=== PATIENT | female | born 1995 | race Caucasian/White ===

== ENCOUNTER → 2020-05-13 16:24 | Outpatient (BNVA) | payer SELFPAY | PROVIDERS: Visit Provider Obstetrics & Gynecology | DX: Z32.01 Encounter for pregnancy test, result positive (principal) | CPT/HCPCS: 81025 ==

== ENCOUNTER → 2020-05-19 13:57 | Outpatient (BNVA) | payer SELFPAY | PROVIDERS: Visit Provider Nurse Practitioner Women's Health | DX: O99.340 Other mental disorders complicating pregnancy, unspecified trimester (principal); F32.9 Major depressive disorder, single episode, unspecified | CPT/HCPCS: 80053; 80307; 81000; 85027; 86592; 86762; 86803; 86850; 86900; 87340; 87806 ==

== ENCOUNTER → 2020-06-01 11:37 | Outpatient (BNVA) | payer MEDICAID, SELFPAY | PROVIDERS: Visit Provider Obstetrics & Gynecology | DX: O09.30 Supervision of pregnancy with insufficient antenatal care, unspecified trimester; O26.899 Other specified pregnancy related conditions, unspecified trimester; Z67.91 Unspecified blood type, Rh negative; O99.89 Other specified diseases and conditions complicating pregnancy, childbirth and the puerperium; Z28.3 Underimmunization status; Z12.4 Encounter for screening for malignant neoplasm of cervix | CPT/HCPCS: 81000; 87491; 87591; 88175 ==

== ENCOUNTER → 2020-06-15 09:40 | Outpatient (BNVA) | payer SELFPAY | PROVIDERS: Visit Provider Obstetrics & Gynecology | DX: Z34.90 Encounter for supervision of normal pregnancy, unspecified, unspecified trimester (principal) | CPT/HCPCS: 81000 ==

== ENCOUNTER → 2020-07-13 13:10 | Outpatient (BNVA) | payer MEDICAID, SELFPAY | PROVIDERS: Visit Provider Obstetrics & Gynecology | DX: Z34.02 Encounter for supervision of normal first pregnancy, second trimester (principal) | CPT/HCPCS: 81000; 82950; 85025; 86850 ==

== ENCOUNTER → 2020-07-27 12:07 | Outpatient (BNVA) | payer SELFPAY | PROVIDERS: Visit Provider Obstetrics & Gynecology | DX: Z34.90 Encounter for supervision of normal pregnancy, unspecified, unspecified trimester (principal) | CPT/HCPCS: 81000 ==

== ENCOUNTER 2020-07-29 18:30 | Outpatient (CLI) | payer MEDICAID, SELFPAY ==
[2020-07-29] VITALS (39 sets, daily range): BP systolic 0–122; BP diastolic 0–87; PULSE 74–102; RESP 16–17; TEMP 36.3–37.2; O2SAT 99–100; BMI 24.3
[2020-07-29] MEDS: lactated ringers 1,000 ML 999 ML IV (19:00)
--- NOTE | 2020-07-29 19:08 | US_ITS ---
WS: [id number] ULTRASOUND OB LIMITED TECHNIQUE: Limited ultrasound examination of the fetus. CLINICAL INFORMATION: Decreased movement COMPARISON: None. FINDINGS: Cervix is closed measuring 3.2 cm Single interuterine gestation. heart rate 153 BPM. Single vertical pocket 3.2 cm Normal umbilical artery waveform and systolic/diastolic ratio. Biophysical profile 8 out of 8. breathin movement: 2 tone: 2 Amniotic fluid: 2 IMPRESSION 1. BPP 6 out of 8. Breathing not visualized. 2. Cervix is closed measuring 3.2 cm.
--- NOTE | 2020-07-29 19:14 | PC.NURSE ---
Dr. Hyde at bedside
--- NOTE | 2020-07-29 19:28 | PC.NURSE ---
Dr. Swartz on unit at this time
[2020-07-29] MEDS: magnesium sulfate premix 4 GM/100 ML PREMIX IV (19:30)
[2020-07-29 19:32] LABS: Basophils % 0.2 %; Eosinophils % 0.5 %; Hemoglobin 12.8 g/dL (11.5-15.3); Lymphocytes # 1.9 10^3/uL (0.8-4.8); Mean Corpuscular HGB Conc 33.7 g/dL (30.0-36.0); Mean Corpuscular Hemoglobin 31.8 pg (28.0-34.0); Mean Corpuscular Volume 94.5 fL (81-99); Mean Platelet Volume 12.3 fL (7.4-10.4); Monocytes # 0.7 10^3/uL (0.2-0.9); Monocytes % 12.3 %; Neutrophils # 3.25 10^3/uL (1.8-7.7); Neutrophils % 54.8 %; Nucleated Red Blood Cells % 0 %; Platelet Count 85 10^3/cmm (130-400); Red Blood Count 4.02 10^6/uL (4.1-5.3); Red Cell Distribution Width 12.7 % (12.1-15.1); White Blood Count 5.9 10^3/uL (4.0-10.0)
[2020-07-29] MEDS: betamethasone susp 6 mg/mL 5 mL 12 MG IM (19:40)
[2020-07-29] MEDS: magnesium sulfate premix 20 GM/500 ML BAG IV (19:50)
[2020-07-29 19:55] LABS: Slide Review Slide Review Perform
[2020-07-29] MEDS: lactated ringers 1,000 ML 75 ML (20:11)
[2020-07-29] MEDS: dextrose 5%-lactated ringers 1,000 ML 75 ML IV (20:29)
--- NOTE | 2020-07-29 20:50 | PC.NURSE ---
Dr. Hyde at bedside explaining that patient needs to be transported via helicopter to [facility] for a higher level of care. MD thoroughly explains the reasons as to why the patient needs to be transferred and the higher level of care needed for fetus. Patient and both adamantly refused to fly in the helicopter due to sabianism reasons. MD explained thoroughly why this was the best route of transport and the patient needing to be transported as quickly as possible. The patient and her still refused to fly at this time and requested to transfer by private vehicle. Dr. Hyde informed patient and spouse that they would have to sign out AMA and that she highly recommended that they not leave AMA and transfer via ambulance if they would not fly for the safety of the patient and the fetus. The patient and her informed Dr. Hyde that they would be willing to transfer in an ambulance. Dr. Hyde then informed this RN to call ambulance company and arrange for transport ROGELIO.
--- NOTE | 2020-07-29 20:50 | PC.NURSE ---
Dr. Hyde at bedside
--- NOTE | 2020-07-29 21:04 | P.HP_ITS ---
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 Viera is a 24 year old with LMP of 01/01/2020., DAYANNA of 10/03/2020, placing her at 30 4/7 weeks. -Late to care-starting at 22 weeks. She presented to labor and delivery on 07/29/2020 at 6:50 PM with reports of decreased movement. She did call the office at about 4:00 stating that she had had decreased movement for the last 2 days and was asked to come in immediately for evaluation. She states that she was not as worried but came in because we had asked her to come in. She has just had food from [employer] prior to coming in. She denies any other problems like abdominal pain, vaginal bleeding or leaking of fluid. Initial report was called into me and about 5 minutes later I got a call back stating that the patient had had a deep variable deceleration with minimal variability with a contraction. I came in immediately to evaluate the patient. Orders were given to obtain labs and start IV fluids and prepare for possible delivery if category 2 tracing persisted. Allergies--No Known Allergies Allergy (Verified 07/27/20 12:31) Home Medications calcium carbonate (Calcium 600) PO ferrous sulfate 325 mg PO DAILY folic acid PO multivitamin 1 cap PO DAILY potassium gluconate 600 mg PO DAILY PRN PMH: No pertinent past medical history Denies diabetes, asthma, hypertension, seizures, DVT/PE. PMD: None Past surgical history No pertinent past surgical history Family History Grandfather Diabetes paternal Grandmother Hypertension maternal Denies family history of Colon cancer Ovarian cancer Heart disease Hyperlipidemia Breast cancer Uterine cancer Thyroid condition Stroke - Tobacco use: Denies, never smoked Alcohol use: Denies Drug use: Denies Work/Study Status: Housewife, works in the garden Menstrual History Comment: Menarche at age 12 with a cycle length of 30-32 days and a bleeding duration of 5-7 days Sexual History Comment: Coitarche at 24 years old, 1 lifetime partner, her Carlos whom she has been with since 2019. STD History Comment: Denies history of sexually transmitted diseases Contraception History Comment: Has never used any kind of contraception including condoms. Is planning on using natural methods and breast-feeding for spacing between pregnancies. Present Details : 1 Review of Systems General: Reports: 10 or more systems reviewed and unremarkable except in HPI and below Const: Denies: fever(s), chills, change in appetite, change in weight, fatigue, malaise or change in sleep pattern Eyes: Denies: change in vision, eye discomfort, eye discharge or seeing flashes ENMT: Denies: throat pain, odynophagia, hoarseness, bleeding gums, ear discharge, nasal discharge or nasal congestion Card: Denies: chest pain, irregular heart rhythm, edema, swelling of feet/ankles, dyspnea on exertion or leg pain with exertion Resp: Denies: dyspnea, productive cough, wheezing or chest congestion GI: Denies: abdominal pain, nausea, vomiting, heartburn, diarrhea, constipation, change in bowel habits or hematochezia : Denies: flank pain, dysuria, urinary frequency, urinary urgency, urinary incontinence, genital lesions, vaginal odor, vaginal bleeding, vaginal dis charge, dysmenorrhea, change in menstrual flow, prolapse symptoms, dyspareunia or sexual dysfunction Musc: Denies: neck pain, back pain, joint pain, joint swelling or muscle cramps Skin/Breast: Denies: rash, pruritus, breast tenderness, nipple discharge or breast mass Neuro: Denies: headache(s), numbness in extremities or seizure-like activity Psych: Denies: anxiety, depression, mood swings or change in appetite Endo: Denies: cold intolerance, flushing, hot flashes or change in body appearance Hua/Lymph: Denies: easy bruising, easy bleeding or enlarged lymph nodes All/Imm: Denies: urticaria, tongue swelling, acute wheezing or itchy eyes Medications/Allergies Home Medications Medication Instructions Recorded Confirmed Last Taken Type calcium carbonate PO 06/01/20 07/27/20 Unknown History folic acid PO 06/01/20 07/27/20 Unknown History multivitamin 1 cap PO DAILY 06/01/20 07/27/20 Unknown History potassium gluconate 600 mg (99 mg) 600 mg PO DAILY PRN 07/13/20 07/27/20 Unknown History tablet ferrous sulfate 325 mg (65 mg 325 mg PO DAILY #90 tab 07/21/20 07/27/20 Unknown Rx iron) tablet,delayed release Allergies Allergy/AdvReac Type Severity Reaction Status Date / Time No Known Allergies Allergy Verified 07/27/20 12:31 PFSH BEEF CATTLE FARM MANAGER 2 PFSH: Medical History No pertinent past medical history Denies diabetes, asthma, hypertension, seizures, DVT/PE. PMD: None Surgical History No pertinent past surgical history Family History Grandfather Diabetes paternal Grandmother Hypertension maternal Denies family history of Colon cancer Ovarian cancer Heart disease Hyperlipidemia Breast cancer Uterine cancer Thyroid condition Stroke Social History Smoking and tobacco status: never smoked History History History 1 Term 0 Miscarriages/Ectopic 0 0 Living Children 0 Other History: 1---->Current Care DAYANNA Calculator Estimated Delivery Date Method Current WG Current Estimate 10/03/20 LMP (Certain) 30w 4d Expected Delivery Route/Plan Vaginal Specific Issues/Plans * LATE TO CARE at 22 weeks * Rh--RhoGam candidate * Rubella nonimmune-MMR if desires * Incomplete anatomy-cerebellum, cerebral ventricles, nose, lips, four-chamber view of heart-referred to [facility] however declined after much counseling as they cannot afford it. * IUGR <3% Vitals/I&O/Wt Last Vital Signs Temp 97.3 F L 07/29/20 18:45 Pulse 83 07/29/20 20:49 Resp 16 07/29/20 18:45 BP 116/75 07/29/20 20:49 Pulse Ox 100 07/29/20 20:59 07/29/20 07/29/20 07/29/20 06:59 14:59 22:59 Intake Total 23.75 / 23.75 Balance 23.75 / 23.75 Weight last 48 hrs Weight 133 lb 4.691 oz Physical Exam Narrative: EXAM NARRATIVE: General: well developed, thin, well-nourished Neuro/Psych: alert, oriented to time, place and person. Neck: Deferred Heart: S1-S2 heard, regular rate and rhythm. Lungs: Clear to auscultation bilaterally. Breast: Deferred Abdomen: Soft, gravid, nontender Legs: No pedal edema no calf tenderness. Negative Homans sign Back: No CVA tenderness Skin: Normal over abdomen Pelvic exam-deferred, cervix appears closed on ultrasound Urinary Catheter Management^: Ruiz Latex Free: Cath Placed During This Visit: yes Urinary Catheter Date of Insertion: 07/29/20 Urinary Catheter Time of Insertion: 19:46 Data : 07/29/20 19:23 A&P Assessment and plan (1) Evaluate anatomy not seen on prior sonogram: Status: Acute (2) Rubella non-immune status, antepartum: Status: Acute (3) Rh negative status during : Status: Acute (4) Late care: Status: Acute (5) Supervision of normal : Status: Acute Qualifiers: Normal : normal first Trimester: second trimester Qualified Code(s): Z34.02 - Encounter for supervision of normal first , second trimester (6) Non-reassuring electronic monitoring tracing: Status: Acute Additional A&P Information I discussed with Ms. Mihai roman and her Carlos that overall monitoring has not been very reassuring. Discussed that the rapidity of minimal variability and variable decelerations which should not occur at 30 weeks. Discussed this taken in light of IUGR as well as nonvisualized intracranial anatomy is concerning for possible problems and I would like to transfer her to [place] should delivery be required. Discussed that when she first came in she was having deep variable decelerations with minimal variability however with fluids oxygen and position changes this has resolved and overall tracing is reassuring and has been for the last 30 minutes and I feel she is stable for transfer. I recommend that she go over by helicopter because that is the fastest mode of transport. She and her state that they do not travel by helicopter for jainism reasons. I discussed with her that a longer travel could affect the outcome and may even cause of baby however they are adamant and do not want to travel by helicopter. They would prefer to drive there by themselves. I discussed that I would strongly recommend against this and that we would be the ones to transfer her via an ambulance. They are loosely unsure about this and a lot of counseling was done about the importance of monitoring and helping keep her mother in a stable position while getting magnesium sulfate to help decrease the risk of complications. -I discussed with patient in great detail the risk of prematurity and problems associated with prematurity and reasons behind magnesium sulfate for neuro protection and dexamethasone for lung maturity and after counseling they have agreed to these measures. -Biophysical profile done today was 6 out of 8 with normal fluid--breathing movement was not obtained in 15 minutes I had not wanted to take the patient off the monitor for longer than 15 minutes for the biophysical profile. -I do not know how much the patient and her have understood and I have spent over 45 minutes in discussion with them about the seriousness of the situation and the importance of being transferred as they initially did not want a transfer and wanted to go home once they saw that the baby was moving okay. -After counseling and explanation the have agreed to transfer by ambulance -Spoke to Dr. Henderson in [facility] who has accepted patient. -Patient to be transferred to [facility] in [place] by ambulance-continue magnesium sulfate and maintain left lateral position and oxygen during transfer. Attestations Medical Necessity Statement*: Patient is being admitted for nonreassuring status Coding Level of Care Code Acute Recruiting Specialist for g Fwd Diagnoses Evaluate anatomy not seen on prior sonogram Z04.89 Rubella non-immune status, antepartum O99.89; Z28.3 Rh negative status during O26.899; Z67.91 Late care O09.30 Supervision of normal Z34.02 Normal : normal first Trimester: second trimester Non-reassuring electronic monitoring tracing O36.1415
--- NOTE | 2020-07-29 21:15 | PM.TDS ---
Transfer Summary Providers Date of Discharge: 07/29/20 Attending Provider at Transfer: Carlito Colunga MD Primary Care Provider: Carlito Colunga MD Anticipated Date of Transfer: Anticipated date of transfer: 07/29/20 Receiving Facility & Provider: Receiving Provider: Dr. Henderson Receiving facility: [facility] Diagnoses at Discharge Discharge Diagnosis (1) Evaluate anatomy not seen on prior sonogram: Status: Acute (2) Rubella non-immune status, antepartum: Status: Acute (3) Rh negative status during : Status: Acute (4) Late care: Status: Acute (5) Supervision of normal : Status: Acute Qualifiers: Normal : normal first Trimester: second trimester Qualified Code(s): Z34.02 - Encounter for supervision of normal first , second trimester (6) Non-reassuring electronic monitoring tracing: Status: Acute Reason for Visit Reason for Visit: decreased movement Hospital Course Hospital Course: Ms. Viera is a 24 year old with LMP of 01/01/2020., DAYANNA of 10/03/2020, placing her at 30 4/7 weeks. -Late to care-starting at 22 weeks. She presented to labor and delivery on 07/29/2020 at 6:50 PM with reports of decreased movement. She did call the office at about 4:00 stating that she had had decreased movement for the last 2 days and was asked to come in immediately for evaluation. She states that she was not as worried but came in because we had asked her to come in. She has just had food from [employer] prior to coming in. She denies any other problems like abdominal pain, vaginal bleeding or leaking of fluid. Initial report was called into me and about 5 minutes later I got a call back stating that the patient had had a deep variable deceleration with minimal variability with a contraction. I came in immediately to evaluate the patient. Orders were given to obtain labs and start IV fluids and prepare for possible delivery if category 2 tracing persisted. ----> She was given magnesium sulfate for neuro protection and a single dose of steroids for lung maturity. Position changes and oxygen and IV fluids were done as well. With all of this tracing improved and she had no further contractions and decelerations were occasional small variables that recovered without any intervention. Variability improved to moderate variability as well. Patient was monitored and biophysical profile done with umbilical artery Dopplers of were normal. Breathing movement was not seen and is only 15 minutes were allowed as I wanted patient back on monitoring. -After counseling given that patient had a category 2 tracing decision was made to transfer patient to [facility]. -I discussed with Ms. Viera and her Carlos that overall monitoring has not been very reassuring. Discussed that the rapidity of minimal variability and variable decelerations which should not occur at 30 weeks. Discussed this taken in light of IUGR as well as nonvisualized intracranial anatomy is concerning for possible problems and I would like to transfer her to [place] should delivery be required. Discussed that when she first came in she was having deep variable decelerations with minimal variability however with fluids oxygen and position changes this has resolved and overall tracing is reassuring and has been for the last 30 minutes and I feel she is stable for transfer. I recommend that she go over by helicopter because that is the fastest mode of transport. She and her state that they do not travel by helicopter for jain reasons. I discussed with her that a longer travel could affect the outcome and may even cause of baby however they are adamant and do not want to travel by helicopter. They would prefer to drive there by themselves. I discussed that I would strongly recommend against this and that we would be the ones to transfer her via an ambulance. They are loosely unsure about this and a lot of counseling was done about the importance of monitoring and helping keep her mother in a stable position while getting magnesium sulfate to help decrease the risk of complications. -I discussed with patient in great detail the risk of prematurity and problems associated with prematurity and reasons behind magnesium sulfate for neuro protection and dexamethasone for lung maturity and after counseling they have agreed to these measures. -Biophysical profile done today was 6 out of 8 with normal fluid--breathing movement was not obtained in 15 minutes I had not wanted to take the patient off the monitor for longer than 15 minutes for the biophysical profile. -I do not know how much the patient and her have understood and I have spent over 45 minutes in discussion with them about the seriousness of the situation and the importance of being transferred as they initially did not want a transfer and wanted to go home once they saw that the baby was moving okay. -After counseling and explanation the have agreed to transfer by ambulance -Spoke to Dr. Henderson in [facility] who has accepted patient. -Patient to be transferred to [facility] in [place] by ambulance-continue magnesium sulfate and maintain left lateral position and oxygen during transfer. Physical Exam Urinary Catheter Management^: Ruiz Latex Free: Cath Placed During This Visit: yes Urinary Catheter Date of Insertion: 07/29/20 Urinary Catheter Time of Insertion: 19:46 TS Data Data Completed and Pending: Pending at discharge Category Date Time Status Magnesium Level ( OB Only) Lab 07/30/20 01:30 Uncollected US OB BPP w o NST w umb Stat Ultrasound 07/29/20 19:08 Taken Labs from last 24 hours 07/29/20 19:23 WBC 5.9 RBC 4.02 L Hgb 12.8 Hct 38.0 MCV 94.5 MCH 31.8 MCHC 33.7 RDW 12.7 Plt Count 85 L MPV 12.3 H Neut % (Auto) 54.8 Lymph % (Auto) 32.0 Laurel % (Auto) 12.3 Eos % (Auto) 0.5 Baso % (Auto) 0.2 Neut # (Auto) 3.25 Lymph # (Auto) 1.9 Laurel # (Auto) 0.7 Eos # (Auto) 0.0 Baso # (Auto) 0.0 Nucleated RBC % (a uto) 0 Nucleated RBCs # 0.0 Vitals: Last Vital Signs Temp 97.3 F L 07/29/20 18:45 Pulse 74 07/29/20 21:04 Resp 16 07/29/20 18:45 BP 112/67 07/29/20 21:04 Pulse Ox 100 07/29/20 21:09 TS Medications Medications Home Medications calcium carbonate PO 06/01/20 [History Confirmed 07/27/20] folic acid PO 06/01/20 [History Confirmed 07/27/20] multivitamin 1 cap PO DAILY 06/01/20 [History Confirmed 07/27/20] potassium gluconate 600 mg (99 mg) tablet 600 mg PO DAILY PRN 07/13/20 [History Confirmed 07/27/20] ferrous sulfate 325 mg (65 mg iron) tablet,delayed release 325 mg PO DAILY #90 tab 07/21/20 [Rx Confirmed 07/27/20] Active Medications Calcium Gluconate (Calcium Gluconate) 1 gm IVP ONCE PRN PRN Reason: Reversal of Magnesium Sulfate Dextrose/Lactated Ringer's (Dextrose 5%-Lactated Ringers) 1,000 mls @ 125 mls/hr IV .Q8H [facility] Last Admin: 07/29/20 20:29 Dose: 75 mls/hr Documented by: Magnesium Sulfate (Magnesium Sulfate Premix) 20 gm in 500 mls @ 50 mls/hr IV .Q10H [facility] Last Admin: 07/29/20 19:50 Dose: 50 mls/hr Documented by: Discharge Plan Discharge Patient Disposition: Home Prescriptions: No Action multivitamin Capsule 1 cap PO DAILY RF: 0 folic acid PO RF: 0 calcium carbonate PO RF: 0 potassium gluconate 600 mg (99 mg) tablet 600 mg PO DAILY PRNRF: 0 ferrous sulfate 325 mg (65 mg iron) tablet,delayed release (DR/EC) 325 mg PO DAILY Qty: 90 RF: 0 Transfer Attestations Time Spent in Transfer Care*: greater than 30 min Quality Metrics Clinical Quality Measures: During this hospital stay, did patient experience: None Coding Level of Care Code Acute Environmental Remediation Engineer for Chg Fwd Diagnoses Evaluate anatomy not seen on prior sonogram Z04.89 Rubella non-immune status, antepartum O99.89; Z28.3 Rh negative status during O26.899; Z67.91 Late care O09.30 Supervision of normal Z34.02 Normal : normal first Trimester: second trimester Non-reassuring electronic monitoring tracing O36.8332
--- NOTE | 2020-07-29 21:22 | PC.NURSE ---
EMS at bedside, report given.
--- NOTE | 2020-07-29 21:37 | PC.NURSE ---
Patient off unit with EMS
== END 2020-07-29 18:31 | disposition home or self-care (01) ==
PROVIDERS: PCP Obstetrics & Gynecology; Visit Provider Obstetrics & Gynecology
DX: O26.893 Other specified pregnancy related conditions, third trimester (principal); Z3A.30 30 weeks gestation of pregnancy
CPT/HCPCS: 12345; 36415; 51702; 59025; 76819; 76820; 85025; 96372; 99211; J0702; J3475

== ENCOUNTER → 2021-04-08 13:44 | Outpatient (BNVA) | payer BC, MEDICAID, SELFPAY | PROVIDERS: PCP Obstetrics & Gynecology; Visit Provider Obstetrics & Gynecology | DX: Z34.02 Encounter for supervision of normal first pregnancy, second trimester (principal) | CPT/HCPCS: 80307; 81000; 84443; 85025; 86592; 86762; 86803; 86850; 86900; 87086; 87340; 87491; 87591; 88175 ==

== ENCOUNTER → 2021-04-13 10:15 | Outpatient (BNVA) | payer BC, MEDICAID, SELFPAY | PROVIDERS: PCP Obstetrics & Gynecology; Visit Provider Obstetrics & Gynecology | DX: O09.899 Supervision of other high risk pregnancies, unspecified trimester (principal); Z3A.00 Weeks of gestation of pregnancy not specified | CPT/HCPCS: 86850; 86900 ==

== ENCOUNTER → 2021-05-05 08:04 | Outpatient (BNVA) | payer BC, MEDICAID, SELFPAY | PROVIDERS: PCP Obstetrics & Gynecology; Visit Provider Obstetrics & Gynecology | DX: O09.899 Supervision of other high risk pregnancies, unspecified trimester (principal); Z87.59 Personal history of other complications of pregnancy, childbirth and the puerperium; Z28.3 Underimmunization status; Z3A.00 Weeks of gestation of pregnancy not specified | CPT/HCPCS: 81000 ==

== ENCOUNTER → 2021-05-20 10:52 | Outpatient (BNVA) | payer BC, MEDICAID, SELFPAY | PROVIDERS: Visit Provider Obstetrics & Gynecology | DX: O09.899 Supervision of other high risk pregnancies, unspecified trimester (principal); Z3A.00 Weeks of gestation of pregnancy not specified | CPT/HCPCS: 81000; 82950; 85025 ==

== ENCOUNTER 2021-05-30 09:33 | Outpatient (CLI) | payer BC, MEDICAID, SELFPAY ==
--- NOTE | 2021-05-30 10:14 | USCV_ITS ---
MaximilianoIvonne Age: 25 Gender: F : 1995 Exam Date: 05/30/2021 10:35 Ordering Phys: Deann Collado MD Technologist: Tito Serrano Exam Location: [facility] Indication: RLE PAIN HISTORY: Lower extremity pain. PROCEDURES: Venous duplex imaging was performed in only the right lower extremity. The following venous structures were evaluated: common femoral vein, profunda vein, proximal portion of the greater saphenous vein, superficial femoral vein, and the popliteal vein. In addition, the posterior tibial and peroneal trunk were evaluated. Serial compression, augmentation maneuvers, and spectral Doppler flow evaluation were performed. FINDINGS: No evidence of DVT seen in any vessel visualized at this time. CONCLUSIONS No evidence of right lower extremity DVT. Chandra Lane MD (Electronically Signed) Final Date: 30 May 2021 17:31 S
== END 2021-05-30 09:34 | disposition home or self-care (01) ==
PROVIDERS: Visit Provider Obstetrics & Gynecology
DX: M79.604 Pain in right leg (principal); O09.893 Supervision of other high risk pregnancies, third trimester
CPT/HCPCS: 81000; 82950; 93971

== ENCOUNTER → 2021-06-16 14:39 | Outpatient (BNVA) | payer BC, MEDICAID, SELFPAY | PROVIDERS: Visit Provider Nurse Practitioner Women's Health | DX: O09.899 Supervision of other high risk pregnancies, unspecified trimester (principal); Z3A.00 Weeks of gestation of pregnancy not specified | CPT/HCPCS: 81000 ==

== ENCOUNTER → 2021-06-30 13:29 | Outpatient (BNVA) | payer BC, MEDICAID, SELFPAY | PROVIDERS: Visit Provider Obstetrics & Gynecology | DX: O09.899 Supervision of other high risk pregnancies, unspecified trimester (principal); Z3A.00 Weeks of gestation of pregnancy not specified | CPT/HCPCS: 81000 ==

== ENCOUNTER → 2021-07-07 14:18 | Outpatient (BNVA) | payer BC, MEDICAID, SELFPAY | PROVIDERS: Visit Provider Obstetrics & Gynecology | DX: O09.899 Supervision of other high risk pregnancies, unspecified trimester (principal); Z3A.00 Weeks of gestation of pregnancy not specified | CPT/HCPCS: 81000 ==

== ENCOUNTER → 2021-07-18 08:55 | Outpatient (BNVA) | payer BC, MEDICAID, SELFPAY | PROVIDERS: Visit Provider Obstetrics & Gynecology | DX: O09.899 Supervision of other high risk pregnancies, unspecified trimester (principal); Z3A.00 Weeks of gestation of pregnancy not specified | CPT/HCPCS: 81000 ==

== ENCOUNTER 2021-07-20 23:11 | Outpatient (CLI) | payer BC, MEDICAID, SELFPAY ==
[2021-07-20 23:32] VITALS: BP 121/71; PULSE 94
[2021-07-20 23:51] VITALS: RESP 15
[2021-07-20 23:52] VITALS: BMI 26.4
[2021-07-21 01:45] VITALS: BP 118/68; PULSE 92
[2021-07-21 01:50] VITALS: BP 118/68; PULSE 92; RESP 16
== END 2021-07-21 01:50 | disposition home or self-care (01) ==
LOC: OPOB 23:23 → OBGYN 23:28
PROVIDERS: Visit Provider Obstetrics & Gynecology
DX: O26.899 Other specified pregnancy related conditions, unspecified trimester (principal); Z3A.00 Weeks of gestation of pregnancy not specified; R10.9 Unspecified abdominal pain
CPT/HCPCS: 59025; 99211

== ENCOUNTER 2021-07-21 16:20 | Outpatient (CLI) | payer BC, MEDICAID, SELFPAY ==
[2021-07-21 16:20] VITALS: BMI 26.4
[2021-07-21 16:33] VITALS: BP 128/76; PULSE 98; TEMP 36.4
[2021-07-21 19:15] VITALS: BP 143/69; PULSE 90
[2021-07-21 19:20] VITALS: BP 143/69; PULSE 90; RESP 17; TEMP 36.4
== END 2021-07-21 19:20 | disposition home or self-care (01) ==
LOC: OPOB 16:28 → OBGYN 16:30
PROVIDERS: Visit Provider Obstetrics & Gynecology
DX: O26.899 Other specified pregnancy related conditions, unspecified trimester (principal); Z3A.00 Weeks of gestation of pregnancy not specified; R10.9 Unspecified abdominal pain
CPT/HCPCS: 59025; 99211

== ENCOUNTER → 2021-07-25 15:20 | Outpatient (BNVA) | payer BC, MEDICAID, SELFPAY | PROVIDERS: Visit Provider Obstetrics & Gynecology | DX: O09.899 Supervision of other high risk pregnancies, unspecified trimester (principal) | CPT/HCPCS: 81000 ==

== ENCOUNTER → 2021-08-01 09:21 | Outpatient (BNVA) | payer BC, MEDICAID, SELFPAY | PROVIDERS: Visit Provider Obstetrics & Gynecology | DX: O09.899 Supervision of other high risk pregnancies, unspecified trimester (principal); Z3A.00 Weeks of gestation of pregnancy not specified | CPT/HCPCS: 81000 ==

== ENCOUNTER → 2021-08-08 10:58 | Outpatient (BNVA) | payer BC, MEDICAID, SELFPAY | PROVIDERS: Visit Provider Obstetrics & Gynecology | DX: O48.0 Post-term pregnancy (principal); O09.899 Supervision of other high risk pregnancies, unspecified trimester; O23.40 Unspecified infection of urinary tract in pregnancy, unspecified trimester; B95.1 Streptococcus, group B, as the cause of diseases classified elsewhere; Z87.59 Personal history of other complications of pregnancy, childbirth and the puerperium; Z3A.00 Weeks of gestation of pregnancy not specified | CPT/HCPCS: 81000 ==

== ENCOUNTER 2021-08-09 13:20 | Inpatient (IN) | payer BC, MEDICAID, SELFPAY ==
[2021-08-09] VITALS (25 sets, daily range): BP systolic 104–130; BP diastolic 58–79; PULSE 84–110; RESP 16–18; TEMP 36.3–37.1; BMI 32.5
[2021-08-09 14:21] LABS: Basophils % 0.1 %; Eosinophils # 0.1 10^3/uL (0.0-0.8); Eosinophils % 1.1 %; Hematocrit 36.3 % (37.0-47.0); Hemoglobin 12.2 g/dL (11.5-15.3); Lymphocytes # 1.4 10^3/uL (0.8-4.8); Lymphocytes % 14.5 %; Mean Corpuscular HGB Conc 33.6 g/dL (30.0-36.0); Mean Corpuscular Hemoglobin 32.2 pg (28.0-34.0); Mean Corpuscular Volume 95.8 fl (81-99); Mean Platelet Volume 12.9 fL (7.4-10.4); Monocytes # 0.9 10^3/uL (0.2-0.9); Neutrophils # 7.36 10^3/uL (1.8-7.7); Nucleated Red Blood Cells % 0 %; Platelet Count 171 10^3/cmm (130-400); Red Blood Count 3.79 10^6/uL (4.1-5.3); Red Cell Distribution Width 13.5 % (12.1-15.1); White Blood Count 9.8 10^3/uL (4.0-10.0)
[2021-08-09] MEDS: dextrose 5%-lactated ringers 1,000 ML 125 ML IV (14:28)
[2021-08-09] MEDS: ampicillin 2,000 MG in sodium chloride 0.9% (plus) 50 ML 100 MG IV (14:29)
[2021-08-09] MEDS: ampicillin 1,000 MG in sodium chloride 0.9% (plus) 50 ML 100 MG IV ×2 (17:54→22:44)
--- NOTE | 2021-08-09 22:22 | PM.OPHPUD ---
Labor & Delivery H&P Update Date of Procedure: August 09, 2021 Date H&P Performed: 08/08/21 H&P update information: I have reviewed H&P completed within last 30 days, I have examined patient prior to procedure and Changes to prior documentation as noted here Changes to previous documentation: The patient presents for induction of labor. She received two doses of ampicillin and she is jaqueline regularly, on her own. Cervix is 4/80/-2 Admission Diagnosis:
[2021-08-09] MEDS: fentaNYL 50 mcg/mL INJ 2mL IVP ×2 (22:28→23:41)
[2021-08-10] VITALS (72 sets, daily range): BP systolic 84–133; BP diastolic 49–87; PULSE 80–115; RESP 14–18; TEMP 36.7–37; O2SAT 94–99
[2021-08-10] MEDS: oxytocin 30 UNIT/500 ML BAG IV (00:11)
[2021-08-10] MEDS: fentaNYL 50 mcg/mL INJ 2mL IVP ×6 (00:57→07:20)
[2021-08-10] MEDS: ampicillin 1,000 MG in sodium chloride 0.9% (plus) 50 ML 100 MG IV ×3 (02:38→12:32)
[2021-08-10] MEDS: dextrose 5%-lactated ringers 1,000 ML 125 ML IV (05:22)
[2021-08-10] MEDS: acetaminophen 325 mg Tablet 650 MG PO (05:30)
[2021-08-10] MEDS: lactated ringers 1,000 ML 999 ML IV (07:30)
--- NOTE | 2021-08-10 08:39 | ANES.PREANE2 ---
Pre-Anesthetic Assessment Pre-Anesthetic Assessment: Height/Weight: Height 1.57 m Weight 80.739 kg Temp Pulse Resp BP Pulse Ox 98.4 F 108 H 17 105/59 96 08/10/21 04:27 08/10/21 08:35 08/10/21 07:20 08/10/21 08:33 08/10/21 08:35 Preop Diagnosis: IUP Proposed Procedure: epidural Familial anesthetic complications: none Was Beta Beryl taken within 24 hours: N/A Was Clonidine taken within 24 hours: N/A Last intake: > 8 hrs Social: Social History: No alcohol and No tobacco Exam: Pre-Anes Outpt Exam: alert, oriented x 3, clear to auscultation bilaterally and regular rate & rhythm Airway: Cervical ROM: WNL MP: 2 Dentition: False Pulmonary: Comments: Hx covid w/ subsequent DIC Anesthetic Plan: ASA status: 2 Anesthesia: Regional (specify below) Risk of > 500 ml blood loss (7ml/kg in children): No Meds/Allergies Current Medications: Current Medications Generic Name Dose Route Start Last Admin Trade Name Freq PRN Reason Stop Dose Admin Acetaminophen 650 mg 08/09/21 14:06 08/10/21 05:30 Acetaminophen 32 5 Mg Tablet PO 650 mg Q6H PRN Administration Mild pain or temp > 100.4 Fentanyl 25 - 100 mcg 08/09/21 21:58 08/10/21 07:20 Fentanyl 50 Mcg/ Ml Inj 2ml IVP 100 mcg Q1H PRN Administration SEVERE PAIN Ampicillin Sodium 1,000 mg/ 50 mls @ 100 mls/ hr 08/09/21 18:15 08/10/21 07:23 Sodium Chloride IV 100 mls/hr Q4H HILARIO Administration Protocol Dextrose/Lactated Ringer's 1,000 mls @ 125 m ls/hr 08/09/21 14:15 08/10/21 05:22 Dextrose 5%-Lact ated Ringers IV 125 mls/hr .Q8H HILARIO Administration Oxytocin 30 unit in 500 ml s @ 1 mls/hr 08/09/21 23:45 08/10/21 00:11 Pitocin IV 1 milliunit/min .Q24H HILARIO 1 mls/hr Administration Protocol 1 MILLIUNIT/MIN PFSH Anesthesia PFSH: Medical History No pertinent past medical history Denies diabetes, asthma, hypertension, seizures, DVT/PE. PMD: None Surgical History Status post delivery 07/31/2020----> primary low transverse delivery for nonreassuring heart tracing at 30 weeks performed in [facility]. -Operative report obtained and scanned-low transverse incision with double layer closure without any extensions. - Patient tested positive for Covid at that time and the thought was that there may have been micro emboli to the placenta causing nonreassuring status. Patient developed DIC after surgery requiring blood and platelets patient was also placed on blood thinners and signed out AMA after a couple of weeks in the hospital. Family History Grandfather Diabetes paternal Grandmother Hypertension maternal Denies family history of Colon cancer Ovarian cancer Heart disease Hyperlipidemia Breast cancer Uterine cancer Thyroid condition Stroke Female Reproductive History: : 2 Data Anesthesia CBC & Chem 7: 08/09/21 14:01 Other Labs: Laboratory Results - last 48 hr 08/09/21 14:01 WBC 9.8 RBC 3.79 L Hgb 12.2 Hct 36.3 L MCV 95.8 MCH 32.2 MCHC 33.6 RDW 13.5 Plt Count 171 MPV 12.9 H Neut % (Auto) 75.0 Lymph % (Auto) 14.5 [place] % (Auto) 9.0 Eos % (Auto) 1.1 Baso % (Auto) 0.1 Neut # (Auto) 7.36 Lymph # (Auto) 1.4 [place] # (Auto) 0.9 Eos # (Auto) 0.1 Baso # (Auto) 0.0 Nucleated RBC % (auto) 0 Nucleated RBCs # 0.0 Cardiac Studies: No Data to Display
--- NOTE | 2021-08-10 08:39 | ANES.PROC ---
Anesthesia Procedures Procedure/Date: 08/10/21 Epidural: Time Out Performed: Yes Consents Signed: Procedure Consent, NPO Consent and No Consent Needed Consent: requested by attending/covering physician, from patient, risks and benefits reviewed and patient agrees to proceed Lumbar Level: L3-L4 Epidural position: sitting Epidural procedure: sterile prep of area, 1% lidocaine to numb the area, 18 g needle, negative for paresthesia passed, neg for paresthesia, test dose given, 1.5% xylocaine 1:200k epi (5), 0.2% Ropivacaine bolus ml (5), placed PCEA, no systemic response, sterile dressing applied, L.U.D. no apparent complications and 0.2% Ropiavacaine @ mls/hr (13) Additional Comments: JHON at 4 cm, threaded to 10 cm
[2021-08-10] MEDS: carboprost tromethamine 250 mcg/mL Amp IM (13:46)
--- NOTE | 2021-08-10 14:12 | PM.DELIVERY ---
Delivery Note: Date of delivery: August 10, 2021 Pre-delivery diagnoses: iup at 40 weeks, 3 days. Active labor Post-delivery diagnoses: same, delivered Procedure: Op report anesthesia: Epidural Delivering Physician: fredy Estimated blood loss (mL): 535 Findings: term female in the cephalic presentation. uterine atony Pre-Delivery Course: The patient was admitted in active labor. She had good cervical change from the office to presentation. She was initially scheduled for induction. By her lmp, she is over 42 weeks. She stated at her OB intake that this was an estimate, but close to term, the couple started saying that it was definite. She had AROM, but didn't progress much. She was still jaqueline about every 2-4 minutes and in a LOT of pain, but no cervical change past 6cm. She received an epidural for pain control and low dose pitocin was started. She had complete cervical dilation and began pushing. Her contraction pattern was very sparse, in spite of 9 units of pitocin. Delivery: The patient had complete cervical dilation and began to push. The head delivered in the straight OA position over an intact perineum under epidural anesthesia. The nose and mouth were bulb suctioned. The shoulders and body delivered atraumatically. The baby was placed onto the mother's abdomen. The cord was clamped and cut. The placenta delivered spontaneously. It was inspected and found to be intact. There was uterine atony at this point and Pitocin was given wide open. A dose of Hemabate was given. TXA was ordered from the pharmacy. The bleeding was then controlled. Inspection of the perineum revealed no perineal lacerations. There was a small right vaginal sidewall laceration as well as a left vaginal sidewall laceration that extended down into the sulcus. These were repaired in the usual fashion with interrupted as well as interlocking suture. Estimated blood loss 535 mL (Weighed). Apgars on baby were 8 at 1 minute and 9 at 5 minutes. Weight of baby is 7 pounds 10 ounces. Mother and baby were stable post delivery. Bleeding was scant. Coding Level of Care Code Acute Telephone Information Clerk for Sada Alejo
[2021-08-10] MEDS: ibuprofen 800 mg tablet PO (18:01)
[2021-08-11] MEDS: ibuprofen 800 mg tablet PO ×3 (01:29→15:01)
[2021-08-11 02:12] LABS: Hematocrit 32.6 % (37.0-47.0); Hemoglobin 11.1 g/dL (11.5-15.3); Mean Corpuscular Hemoglobin 32.5 pg (28.0-34.0); Mean Corpuscular Volume 95.3 fl (81-99); Mean Platelet Volume 12.9 fL (7.4-10.4); Platelet Count 148 10^3/cmm (130-400); Red Blood Count 3.42 10^6/uL (4.1-5.3); Red Cell Distribution Width 13.8 % (12.1-15.1); White Blood Count 16.3 10^3/uL (4.0-10.0)
[2021-08-11 03:36] VITALS: BP 112/59; PULSE 84; TEMP 36.9
[2021-08-11] MEDS: prenatal vitamin Capsule 1 CAP PO ×2 (09:27→09:28)
[2021-08-11 09:30] VITALS: TEMP 36.7
[2021-08-11 09:31] VITALS: BP 95/50; PULSE 105
[2021-08-11 09:40] VITALS: RESP 18
--- NOTE | 2021-08-11 11:08 | P.DS_ITS ---
Discharge Providers Date of Admission: 08/09/21 13:20 Date of Discharge: August 11, 2021 Attending Provider at Admission: Deann Collado MD Attending Provider at Discharge: Deann Collado MD Diagnoses at Discharge Discharge Diagnosis (1) state: Status: Acute Reason for Visit Reason for Visit: induction Hospital Course Hospital Course The patient was admitted in active labor. She had good cervical change from the office to presentation. She was initially scheduled for induction. By her lmp, she is over 42 weeks. She stated at her OB intake that this was an estimate, but close to term, the couple started saying that it was definite. She had AROM, but didn't progress much. She was still jaqueline about every 2-4 minutes and in a LOT of pain, but no cervical change past 6cm. She received an epidural for pain control and low dose pitocin was started. She had complete cervical dilation and began pushing. Her contraction pattern was very sparse, in spite of 9 units of pitocin. She had a term female . She did well and was ready for discharge on day #1 Physical Exam Narrative: EXAM NARRATIVE: The patient has no concerns today. She is breast feeding and that is going well. Const: COMMON NORMALS: no acute distress, patient oriented x3, no limitations, alert and well nourished GENERAL APPEARANCE: cooperative, comfortable, well kempt and well developed ORIENTATION/CONSCIOUSNESS: Yes awake, Yes oriented to person, Yes oriented to place and Yes oriented to time Resp: COMMON NORMALS: normal respiratory effort EFFORT & INSPECTION: Yes able to speak in complete sentences GI: COMMON NORMALS: Soft to palpation and non-tender PALPATION: Yes Soft to palpation Extremity: COMMON NORMALS: no clubbing, cyanosis or edema and no calf tenderness Neuro: COMMON NORMALS: patient oriented x3 SENSORIUM/ORIENTATION: Yes alert, Yes oriented to person, Yes oriented to place and Yes oriented to time Psych: APPEARANCE: Yes well kempt Urinary Catheter Management^: Ruiz: Cath Placed During This Visit: yes, but has since been removed by the nurse Reason for Continuing Indwelling Catheter: Decision to DC Catheter Urinary Catheter Date of Insertion: 08/10/21 Urinary Catheter Time of Insertion: 08:50 Date Urinary Catheter Removed: 08/10/21 Time Urinary Catheter Discontinued: 13:30 Discharge Data Data Completed and Pending: Labs from last 24 hours 08/11/21 01:34 WBC 16.3 H RBC 3.42 L Hgb 11.1 L Hct 32.6 L MCV 95.3 MCH 32.5 MCHC 34.0 RDW 13.8 Plt Count 148 MPV 12.9 H Vitals: Last Vital Signs Temp 98.1 F 08/11/21 09:30 Pulse 105 H 08/11/21 09:31 Resp 18 08/11/21 09:40 BP 95/50 08/11/21 09:31 Pulse Ox 96 08/10/21 08:50 Discharge Plan Discharge Patient Disposition: Home Condition: Stable Prescriptions: Continued prenat.vits,ramin,osn-fpsq-nayrl Tablet 1 tab PO DAILY RF: 0 Discharge Orders: Discharge Order (Routine); Ordered 08/11/21 Ordered By: Deann Collado Patient Instructions: Opioid Safety Discharge Attestations Time Spent in Discharge Care*: less than 30 min Quality Metrics Clinical Quality Measures During this hospital stay, did patient experience: None Coding Level of Care Code Acute Chg [facility] note Diagnoses state Z39.2
--- NOTE | 2021-08-11 14:37 | PC.NURSE ---
patient refused MMR vaccine.
[2021-08-11 14:50] VITALS: BP 131/77; PULSE 82; TEMP 36.3
[2021-08-11 15:05] VITALS: BP 131/77; PULSE 82; RESP 18; TEMP 36.3
--- NOTE | 2021-08-12 14:22 | ANE.PACU2 ---
Inpatient post-anesthesia follow up: Airway intact: Yes Vital signs: Temperature 97.4 F Pulse Rate 82 Respiratory Rate 18 Blood Pressure 131/77 Pulse Oximetry 96 Oxygen Delivery Me thod Room Air Oxygen Flow Rate Fraction of Inspir ed Oxygen Hydration adequate: Yes Nausea and vomiting: No Pain level: 1 Mental status: Baseline
== END 2021-08-11 15:10 | disposition home or self-care (01) | DRG 768 ==
PROVIDERS: Admitting Provider Obstetrics & Gynecology; Visit Provider Obstetrics & Gynecology
DX: O34.211 Maternal care for low transverse scar from previous cesarean delivery (principal); Z37.0 Single live birth; O71.4 Obstetric high vaginal laceration alone; Z3A.42 42 weeks gestation of pregnancy; O48.0 Post-term pregnancy; Z86.16 Personal history of COVID-19; Z87.440 Personal history of urinary (tract) infections
CPT/HCPCS: 36415; 51702; 59409; 85025; 85027; 96372; J0290; J2795; J3010

== ENCOUNTER → 2022-08-25 09:56 | Outpatient (BNVA) | payer BC, MEDICAID, SELFPAY | PROVIDERS: Visit Provider Obstetrics & Gynecology | DX: Z34.90 Encounter for supervision of normal pregnancy, unspecified, unspecified trimester (principal) | CPT/HCPCS: 80307; 82950; 84315; 84443; 85025; 86762; 86803; 86850; 86900; 87086; 87340; 87806 ==

== ENCOUNTER → 2022-09-14 10:40 | Outpatient (BNVA) | payer BC, MEDICAID, SELFPAY | PROVIDERS: Visit Provider Obstetrics & Gynecology | DX: O09.30 Supervision of pregnancy with insufficient antenatal care, unspecified trimester (principal); O09.899 Supervision of other high risk pregnancies, unspecified trimester; Z3A.00 Weeks of gestation of pregnancy not specified | CPT/HCPCS: 81000; 84443; 85025; 87086 ==

== ENCOUNTER → 2022-10-02 11:09 | Outpatient (BNVA) | payer BC, MEDICAID, SELFPAY | PROVIDERS: Visit Provider Obstetrics & Gynecology | DX: O09.30 Supervision of pregnancy with insufficient antenatal care, unspecified trimester (principal); Z3A.00 Weeks of gestation of pregnancy not specified | CPT/HCPCS: 81000; 85025; 87086 ==

== ENCOUNTER → 2022-10-13 15:20 | Outpatient (BNVA) | payer BC, MEDICAID, SELFPAY | PROVIDERS: Visit Provider Obstetrics & Gynecology | DX: O09.90 Supervision of high risk pregnancy, unspecified, unspecified trimester (principal); Z3A.00 Weeks of gestation of pregnancy not specified | CPT/HCPCS: 81000; 87081 ==

== ENCOUNTER → 2022-10-27 10:00 | Outpatient (BNVA) | payer BC, MEDICAID, SELFPAY | PROVIDERS: Visit Provider Obstetrics & Gynecology | DX: O09.899 Supervision of other high risk pregnancies, unspecified trimester (principal); Z3A.00 Weeks of gestation of pregnancy not specified | CPT/HCPCS: 81000; 87086 ==

== ENCOUNTER → 2022-11-01 14:00 | Outpatient (BNVA) | payer BC, MEDICAID, SELFPAY | PROVIDERS: Visit Provider Obstetrics & Gynecology | DX: O09.899 Supervision of other high risk pregnancies, unspecified trimester (principal); Z3A.00 Weeks of gestation of pregnancy not specified | CPT/HCPCS: 81000; 87086 ==

== ENCOUNTER 2022-11-08 00:10 | Inpatient (IN) | payer BC, MEDICAID, SELFPAY ==
[2022-11-07] VITALS (8 sets, daily range): BP systolic 96–122; BP diastolic 54–77; PULSE 89–104; RESP 17; TEMP 36.9; BMI 36.7
[2022-11-07 18:37] LABS: Basophils % 0.2 %; Eosinophils # 0.2 10^3/uL (0.0-0.8); Eosinophils % 2.7 %; Hematocrit 34.6 % (37.0-47.0); Hemoglobin 11.6 g/dL (11.5-15.3); Lymphocytes # 1.6 10^3/uL (0.8-4.8); Lymphocytes % 20.3 %; Mean Corpuscular HGB Conc 33.5 g/dL (30.0-36.0); Mean Corpuscular Hemoglobin 31.7 pg (28.0-34.0); Mean Corpuscular Volume 94.5 fl (81-99); Mean Platelet Volume 12.4 fL (7.4-10.4); Monocytes # 0.8 10^3/uL (0.2-0.9); Monocytes % 10.1 %; Neutrophils # 5.31 10^3/uL (1.8-7.7); Neutrophils % 66.2 %; Nucleated Red Blood Cells % 0 %; Platelet Count 159 10^3/cmm (130-400); Red Blood Count 3.66 10^6/uL (4.1-5.3); Red Cell Distribution Width 14.3 % (12.1-15.1)
[2022-11-07] MEDS: dextrose 5%-lactated ringers 1,000 ML 125 ML IV (19:04)
[2022-11-07] MEDS: ampicillin 2,000 MG in sodium chloride 0.9% (plus) 50 ML 100 MG IV (19:05)
[2022-11-07] MEDS: oxytocin 30 UNIT/500 ML BAG IV (20:20)
[2022-11-07] MEDS: ampicillin 1,000 MG in sodium chloride 0.9% (plus) 50 ML 100 MG IV (22:53)
[2022-11-08] VITALS (116 sets, daily range): BP systolic 81–151; BP diastolic 43–85; PULSE 75–136; RESP 15–18; TEMP 36.1–37.3; O2SAT 93–100
[2022-11-08] MEDS: fentaNYL 50 mcg/mL INJ 2mL IVP ×4 (01:17→05:19)
[2022-11-08] MEDS: ampicillin 1,000 MG in sodium chloride 0.9% (plus) 50 ML 100 MG IV ×3 (02:30→11:26)
[2022-11-08] MEDS: dextrose 5%-lactated ringers 1,000 ML 125 ML IV (04:02)
[2022-11-08] MEDS: lactated ringers 1,000 ML 999 ML IV ×2 (05:30→06:26)
--- NOTE | 2022-11-08 06:11 | ANES.PREANE2 ---
Pre-Anesthetic Assessment Height/Weight: Height 1.57 m Weight 91.172 kg Temp Pulse Resp BP Pulse Ox O2 Del Method 97.5 F L 97 18 123/77 97 11/08/22 03:03 11/08/22 06:08 11/08/22 05:19 11/08/22 06:04 11/08/22 06:08 11/07/22 18:27 Preop Diagnosis: IUP labor epidural Familial anesthetic complications: none, previous emergent c/s with GA complicated by covid and DIC. Last intake: 11/07/22 1700 dinner clears - current. Social No alcohol and No tobacco Exam alert, oriented x 3 and clear to auscultation bilaterally Airway Submandibular: within normal limits Cervical ROM: within normal limits Mallampati: Class II Dentition: full Pulmonary None reported CV/HEM None reported None reported Hepatic None reported Metabolic None reported Musc/skel None reported Neuropsych None reported Anesthetic Plan ASA status: 2 Anesthesia: Eval. for regional block Medications/Allergies Home Medications Medication Instructions Recorded Confirmed Last Taken Type prenat.vits,raimn,xne-nzva-wcbah 1 tab PO DAILY 07/21/21 11/01/22 08/09/21 09:00 History ferrous sulfate 27 mg iron tablet 27 mg PO DAILY 10/02/22 11/01/22 Unknown History Allergies Allergy/AdvReac Type Severity Reaction Status Date / Time No Known Allergies Allergy Verified 11/01/22 14:36 Current Medications Generic Name Dose Route Start Last Admin Trade Name Freq PRN Reason Stop Dose Admin Fentanyl 25 - 100 mcg 11/08/22 01:10 11/08/22 05:19 Fentanyl 50 Mcg/Ml Inj 2ml IVP 100 mcg Q1H PRN Administration SEVERE PAIN Dextrose/Lactated Ringer's 1,000 mls @ 125 mls/hr 11/07/22 18:30 11/08/22 05:43 Dextrose 5%-Lactated Ringers IV 0 mls/hr .Q8H HILARIO Infusion Ampicillin Sodium 1,000 mg/ 50 mls @ 100 mls/hr 11/07/22 22:30 11/08/22 02:30 Sodium Chloride IV 100 mls/hr Q4H HILARIO Administration Protocol Oxytocin 30 unit in 500 mls @ 1 mls/hr 11/07/22 20:15 11/08/22 04:44 Pitocin IV 0 milliunit/min .Q24H HILARIO 0 mls/hr Titration Protocol 1 MILLIUNIT/MIN Lactated Ringer's 1,000 mls @ 999 mls/hr 11/08/22 05:27 11/08/22 05:30 Lactated Ringers IV 999 mls/hr .Q1H1M PRN Administration See label comments PFSH Anesthesia Medical History No pertinent past medical history Denies diabetes, asthma, hypertension, seizures, DVT/PE. PMD: None Surgical History Status post delivery 07/31/2020----> primary low transverse delivery for nonreassuring heart tracing at 30 weeks performed in [facility]. -Operative report obtained and scanned-low transverse incision with double layer closure without any extensions. - Patient tested positive for Covid at that time and the thought was that there may have been micro emboli to the placenta causing nonreassuring status. Patient developed DIC after surgery requiring blood and platelets patient was also placed on blood thinners and signed out AMA after a couple of weeks in the hospital. Family History Grandfather Diabetes paternal Grandmother Hypertension maternal Denies family history of Colon cancer Ovarian cancer Heart disease Hyperlipidemia Breast cancer Uterine cancer Thyroid condition Stroke Social History Smoking and tobacco status: never smoked Female Reproductive History : 3 Data Anesthesia 11/07/22 18:21 Short CBC 11/07/22 Range/Units 18:21 WBC 8.0 (4.0-10.0) 10^3/uL Hgb 11.6 (11.5-15.3) g/dL Hct 34.6 L (37.0-47.0) % MCV 94.5 (81-99) fl Plt Count 159 (130-400) 10^3/cmm Neut % (Auto) 66.2 % Neut # (Auto) 5.31 (1.8-7.7) 10^3/uL Cardiac Studies: No Data to Display
--- NOTE | 2022-11-08 06:42 | ANES.PROC ---
Anesthesia Procedures Procedure/Date: 11/08/22 Epidural: Time Out Performed: Yes Consents Signed: Procedure Consent and NPO Consent Consent: requested by attending/covering physician, from patient, risks and benefits reviewed and patient agrees to proceed Lumbar Level: L3-L4 Epidural position: sitting Epidural procedure: sterile prep of area, 1% lidocaine to numb the area, neg for paresthesia, test dose given, 1.5% xylocaine 1:200k epi (3mL/2mL), 0.2% Ropivacaine bolus ml (5), placed PCEA, no systemic response, sterile dressing applied and 0.2% Ropiavacaine @ mls/hr (11) Additional Comments: JHON at 6, catheter threaded to 11cm
--- NOTE | 2022-11-08 08:08 | PM.OPHPUD ---
Labor & Delivery H&P Update Date of Procedure: November 08, 2022 Date H&P Performed: 11/01/22 H&P update information: I have reviewed H&P completed within last 30 days, I have examined patient prior to procedure and No changes to prior documentation Changes to previous documentation: The patient is here for induction of labor at term. She lives remotely and is GBS positive. She has also had one previous delivery. this baby was and IUGR. The patient had been hospitalized with Covid and was quite ill. She is being admitted for induction with AROM and low dose pitocin. Admission Diagnosis: Preop diagnosis: IUP @ 39 weeks, 5 days Related Problem List Diagnoses (1) Late care: (2) History of delivery: (3) GBS (group B streptococcus) UTI complicating : (4) Supervision of other high risk , antepartum: (5) History of delivery, currently : (6) History of prior with IUGR : (7) Rubella non-immune status, antepartum:
--- NOTE | 2022-11-08 12:59 | P.PCNOB_ITS ---
Delivery Note: Date of delivery: November 08, 2022 Pre-delivery diagnoses: iup@ 39w5d, history of delivery, history of successful [id number] Post- delivery diagnoses: same- delivered Procedure: VAVD/ Delivering Physician: Heaven Estimated blood loss (mL): 445 Findings: Term male in the cephalic presentation. Single nuchal cord reduced at the perineum. Left vaginal Sulcus laceration, likely from the previously placed scalp electrode. Pre-Delivery Course: The patient was admitted for induction of labor at term with favorable cervix. Low dose pitocin was started. AROM was performed. She received an epidural for pain management. She progressed and had complete cervical dilation. Delivery: The patient had complete cervical dilation and began to push. There was poor pushing effort, in spite of the baby in the +3 station. The more she pushed, the poorer the pushing effort was. The baby began to have decelerations to the 60's with every push. I spoke with the patient about assisting with a vacuum. She was in favor of this idea. With the next contraction, the kiwi vacuum was placed. It was pumped to the green and the head emerged . total vacuum time was about 5 seconds. The vacuum was decompressed and removed from the head. The head delivered in the CARIE position over an intac t perineum under epidural anesthesia. The nose and mouth were bulb suctioned. The shoulders and body delivered atraumatically. The baby was placed onto the mother's abdomen. The cord was clamped and cut. The placenta delivered spontaneously. It was inspected and found to be intact. Inspection of the perineum revealed a left vaginal sulcus laceration. It was bleeding briskly. This was repaired with locked sutures until hemostatic. There was good hemostasis post repair. Estimated blood loss 445, including laps. Apgars on baby were 8 at 1 minute and 9 at 5 minutes. Weight of baby is 7 pounds 8 ounces. Mother and baby were stable post delivery. History History History 3 Term 1 1 Miscarriages/Ectopic 0 Living Children 2 Coding Level of Care Code Acute Quality Control Head for Chg Melo
[2022-11-08] MEDS: ibuprofen 800 mg tablet PO (16:06)
[2022-11-08 18:12] LABS: Hematocrit 33.8 % (37.0-47.0); Hemoglobin 11.2 g/dL (11.5-15.3); Mean Corpuscular HGB Conc 33.1 g/dL (30.0-36.0); Mean Corpuscular Hemoglobin 31.9 pg (28.0-34.0); Mean Corpuscular Volume 96.3 fl (81-99); Mean Platelet Volume 12.6 fL (7.4-10.4); Platelet Count 136 10^3/cmm (130-400); Red Blood Count 3.51 10^6/uL (4.1-5.3); Red Cell Distribution Width 14.5 % (12.1-15.1); White Blood Count 12.7 10^3/uL (4.0-10.0)
[2022-11-09 04:35] VITALS: BP 112/58; PULSE 77
[2022-11-09 04:41] VITALS: RESP 16
[2022-11-09 04:55] LABS: Hematocrit 31.1 % (37.0-47.0); Hemoglobin 10.5 g/dL (11.5-15.3); Mean Corpuscular HGB Conc 33.8 g/dL (30.0-36.0); Mean Corpuscular Hemoglobin 32.4 pg (28.0-34.0); Mean Platelet Volume 11.9 fL (7.4-10.4); Platelet Count 132 10^3/cmm (130-400); Red Blood Count 3.24 10^6/uL (4.1-5.3); Red Cell Distribution Width 14.4 % (12.1-15.1); White Blood Count 9.2 10^3/uL (4.0-10.0)
--- NOTE | 2022-11-09 06:51 | USCV_ITS ---
Ivonne Viera Age: 26 Gender: F : 1995 Exam Date: 11/09/2022 07:08 Ordering Phys: Deann Collado MD Technologist: PITO Exam Location: [facility] [place] Indication: LLE PAIN AND SWELLING HISTORY: Lower extremity pain. Lower extremity swelling. PROCEDURES: Venous duplex imaging was performed in only the left lower extremity. The following venous structures were evaluated: common femoral vein, profunda vein, proximal portion of the greater saphenous vein, superficial femoral vein, and the popliteal vein. In addition, the posterior tibial and peroneal trunk were evaluated. Serial compression, augmentation maneuvers, and spectral Doppler flow evaluation were performed. FINDINGS: No evidence of DVT seen in any vessel visualized at this time. Edema seen in Area Of Pain CONCLUSIONS No evidence of left lower extremity DVT. Soft tissue edema area of interest Chandra Lane MD (Electronically Signed) Final Date: 09 November 2022 10:41 S
--- NOTE | 2022-11-09 08:00 | ANE.PACU2 ---
Inpatient post-anesthesia follow up: Airway intact: Yes Vital signs: Temperature 97.9 F Pulse Rate 89 Respiratory Rate 18 Blood Pressure 122/76 Pulse Oximetry 94 Oxygen Delivery Me thod Room Air Oxygen Flow Rate Fraction of Inspir ed Oxygen Hydration adequate: Yes Nausea and vomiting: No Pain level: 1 Mental status: Baseline
[2022-11-09 09:54] VITALS: BP 125/74; PULSE 93
[2022-11-09 09:55] VITALS: TEMP 36.6
--- NOTE | 2022-11-09 11:26 | PM.DCS ---
Discharge Providers Date of Admission: 11/08/22 00:10 Date of Discharge: November 09, 2022 Attending Provider at Admission: Deann Collado MD Attending Provider at Discharge: Deann Collado MD Diagnoses at Discharge Discharge Diagnosis (1) Late care: Status: Resolved (2) History of delivery: Status: Inactive (3) GBS (group B streptococcus) UTI complicating : Status: Resolved (4) Supervision of other high risk , antepartum: Status: Resolved (5) History of delivery, currently : Status: Resolved (6) History of prior with IUGR : Status: Resolved (7) Rubella non-immune status, antepartum: Status: Inactive Reason for Visit Reason for Visit: Induction Hospital Course Hospital Course The patient was admitted for induction at term. She had AROM with pitocin augmentation. She had a successful . She requested discharge on day #1. She had a venous duplex of her left leg due to complaints of pain. It was negative and just showed some swelling. Physical Exam Narrative: The patient is doing well this morning. She is having new onset pain behind her left knee. Otherwise, no concerns. Const: COMMON NORMALS: no acute distress, patient oriented x3, no limitations, healthy appearing, alert and well nourished GENERAL APPEARANCE: cooperative, comfortable, well kempt and well developed ORIENTATION/CONSCIOUSNESS: Yes awake, Yes oriented to person, Yes oriented to place and Yes oriented to time Resp: COMMON NORMALS: normal respiratory effort EFFORT & INSPECTION: Yes able to speak in complete sentences GI: COMMON NORMALS: Soft to palpation and non-tender PALPATION: Yes Soft to palpation Extremity: COMMON NORMALS: no calf tenderness NARRATIVE EXTREMITY EXAM: Tenderness to palpation behind left knee. No calf tenderness Neuro: COMMON NORMALS: patient oriented x3 SENSORIUM/ORIENTATION: Yes alert, Yes oriented to person, Yes oriented to place and Yes oriented to time Psych: APPEARANCE: Yes well kempt Urinary Catheter Management: Ruiz: Cath Placed During This Visit: yes, but has since been removed by the nurse Reason for Continuing Indwelling Catheter: Decision to DC Catheter Urinary Catheter Date of Insertion: 11/08/22 Urinary Catheter Time of Insertion: 07:19 Date Urinary Catheter Removed: 11/08/22 Time Urinary Catheter Discontinued: 11:43 Discharge Data Studies Completed and Pending Completed Studies During Hospitalization Category Date Time Status US venous duplex lower extremity LT [CV venous duplex Ultrasound 11/09/22 06:51 [place] [id number]] Routine Laboratory Results WBC 9.2 10^3/uL (4.0-10.0) 11/09/22 04:50 RBC 3.24 10^6/uL (4.1-5.3) L 11/09/22 04:50 Hgb 10.5 g/dL (11.5-15.3) L 11/09/22 04:50 Hct 31.1 % (37.0-47.0) L 11/09/22 04:50 MCV 96.0 fl (81-99) 11/09/22 04:50 MCH 32.4 pg (28.0-34.0) 11/09/22 04:50 MCHC 33.8 g/dL (30.0-36.0) 11/09/22 04:50 RDW 14.4 % (12.1-15.1) 11/09/22 04:50 Plt Count 132 10^3/cmm (130-400) 11/09/22 04:50 MPV 11.9 fL (7.4-10.4) H 11/09/22 04:50 Neut % (Auto) 66.2 % 11/07/22 18:21 Lymph % (Auto) 20.3 % 11/07/22 18:21 [place] % (Auto) 10.1 % 11/07/22 18:21 Eos % (Auto) 2.7 % 11/07/22 18:21 Baso % (Auto) 0.2 % 11/07/22 18:21 Neut # (Auto) 5.31 10^3/uL (1.8-7.7) 11/07/22 18:21 Lymph # (Auto) 1.6 10^3/uL (0.8-4.8) 11/07/22 18:21 [place] # (Auto) 0.8 10^3/uL (0.2-0.9) 11/07/22 18:21 Eos # (Auto) 0.2 10^3/uL (0.0-0.8) 11/07/22 18:21 Baso # (Auto) 0.0 10^3/uL (0.0-0.1) 11/07/22 18:21 Nucleated RBC % (auto) 0 % 11/07/22 18:21 Nucleated RBCs # 0.0 /100WBC 11/07/22 18:21 Vitals Last Vital Signs Temp 97.9 F 11/09/22 09:55 Pulse 93 11/09/22 09:54 Resp 16 11/09/22 04:41 BP 125/74 11/09/22 09:54 Pulse Ox 94 11/08/22 11:37 O2 Del Method 11/07/22 18:27 Discharge Plan Discharge Patient Disposition: Home Condition: Stable Prescriptions: Continued ferrous sulfate 27 mg iron tablet 27 mg PO DAILY prenat.vits,ramin,ujz-mmkm-eivwv Tablet 1 tab PO DAILY Discharge Orders: Discharge Order (Routine); Ordered 11/09/22 Ordered By: Deann Collado Referrals: Deann Collado MD [Physician] - 11/22/22 1:45 pm (Your [address] Collado is December 27, 2022 at 1:30 p.m.) Patient Instructions: Depression (GEN), Perineal Care (GEN), Preeclampsia and Eclampsia After Delivery (GEN), OB Discharge Report, Opioid Safety, OB Vaginal Deliveries - [facility], Abnormal Bleeding Activity Restrictions/Additional Instructions: Pelvic rest for 6 weeks; no intercourse or tampons Discharge Attestations Time Spent in Discharge Care*: less than 30 min Quality Metrics Clinical Quality Measures [ No reported AMI, CVA or VTE this stay] Coding Level of Care Code Acute Chg FW DC note Diagnoses Late care O09.30 History of delivery Z98.891 GBS (group B streptococcus) UTI complicating O23.40; B95.1 Supervision of other high risk , antepartum O09.899 History of delivery, currently O09.899 History of prior with IUGR Z87.59 Rubella non-immune status, antepartum O99.89; Z28.3
--- NOTE | 2022-11-09 12:30 | PC.NURSE ---
educated pt on rubella non-immune status, pt refuses all vaccines. MMR not given
[2022-11-09] MEDS: ibuprofen 800 mg tablet PO (13:25)
[2022-11-09 13:30] VITALS: BP 122/76; PULSE 89; RESP 18; TEMP 36.6
== END 2022-11-09 13:30 | disposition home or self-care (01) | DRG 807 ==
LOC: OPOB 00:10 → OBGYN 00:10
PROVIDERS: Admitting Provider Obstetrics & Gynecology; Visit Provider Obstetrics & Gynecology
DX: O99.824 Streptococcus B carrier state complicating childbirth (principal); Z37.0 Single live birth; O34.219 Maternal care for unspecified type scar from previous cesarean delivery; N85.8 Other specified noninflammatory disorders of uterus; O99.284 Endocrine, nutritional and metabolic diseases complicating childbirth; E03.9 Hypothyroidism, unspecified; O69.81X0 Labor and delivery complicated by cord around neck, without compression, not applicable or unspecified; O70.0 First degree perineal laceration during delivery; Z3A.39 39 weeks gestation of pregnancy; O76 Abnormality in fetal heart rate and rhythm complicating labor and delivery; O90.89 Other complications of the puerperium, not elsewhere classified; M79.605 Pain in left leg; R60.9 Edema, unspecified
CPT/HCPCS: 36415; 51702; 59025; 59409; 85025; 85027; 93971; 96374; 96376; J0290; J2590; J2795; J3010; J7120; J7121